=== PATIENT | male | born 1945 | race African-American/Black ===

== ENCOUNTER 2025-02-10 13:38 | Emergency (ER) | payer MEDICARE, OTHER ==
[~2025-02-10] VITALS: Ht 167.6 cm; Wt 72.6 kg
--- NOTE | 2025-02-10 13:45 | ERN ---
ED Note History of Present Illness Stated Complaint: URINARY RETENTION Chief Complaint: Urinary Retention Time Seen by MD: 13:40 Dictation: PATIENT IS A 79-YEAR-OLD MALE COMING IN WITH A SONS FROM THE LOCAL [place] [facility]. HE IS COMPLAINING OF URINARY RETENTION ONSET HAS BEEN INTERMITTENTLY FOR THE LAST COUPLE OF DAYS. HE HAD A BLADDER SCAN PERFORMED AT THE [facility], HAD 694 CC RETAINED URINE WAS SENT TO THE EMERGENCY ROOM FOR A SHAW CATHETER INSERTION. PATIENT STATES HE HAS A HISTORY OF PROSTATE ENLARGEMENT AND HAVE HAD LEFT TESTICULAR CANCER WITH REMOVAL IN [place] WHERE HE LIVES. CHILLS NO FLANK PAIN. NO NAUSEA PATIENT NOTED TO BE DISTENDED 3-4 FINGERBREADTHS ABOVE SYMPHYSIS PUBIS IN TRIAGE Allergies: Coded Allergies: alendronate sodium (Unverified Allergy, Unknown, NAUSEA/VOMITING, 02/10/25) meloxicam (Unverified Allergy, Unknown, RASH, 02/10/25) pineapple (Unverified Allergy, Unknown, 02/10/25) Past Medical History RN Note Reviewed/Agreed w/PFSH: Yes Review of System Dictation CONSTITUTIONAL: NEGATIVE EXCEPT FOR HPI HEAD/FACE: NEGATIVE EXCEPT FOR HPI EENT: NEGATIVE EXCEPT FOR HPI RESPIRATORY: NEGATIVE EXCEPT FOR HPI GASTROINTESTINAL/ABDOMINAL: NEGATIVE EXCEPT FOR HPI GENITOURINARY: NEGATIVE EXCEPT FOR HPI URINARY RETENTION MUSCULOSKELETAL: NEGATIVE EXCEPT FOR HPI INTEGUMENTARY: NEGATIVE EXCEPT FOR HPI NEUROLOGICAL/PSYCH: NEGATIVE EXCEPT FOR HPI HEMATOLOGIC/LYMPHATIC: NEGATIVE EXCEPT FOR HPI ALL SYSTEMS NEGATIVE, EXCEPT NOTED ABOVE. 13 POINT REVIEW OF SYSTEMS ASSESSED AND ALL NEGATIVE EXCEPT FOR ABOVE. Initial Vital Sign VS Vital Signs Date Time Temp Pulse Resp B/P (MAP) Pulse Ox O2 Delivery O2 Flow Rate FiO2 02/10/25 13:41 98.1 62 20 115/74 20 Room Air 0 Physical Exam Dictation VITAL SIGNS REVIEWED GENERAL APPEARANCE: ALERT, ORIENTED X 3, MODERATE ACUTE DISTRESS, WELL DEVELOPED, NOURISHED. HEAD AND FACE: NON-TRAUMATIC. EYES: PERRL, PINK CONJUNCTIVAS, EYELID NO TRAUMA, ANTERIOR CHAMBER WITH ARCUS SENILIS. EARS: PINNAS INTACT AND NO SIGNS OF TRAUMA OR ERYTHEMA EAR CANALS CLEAR AND NO DISCHARGE TM NO ERYTHEMA NOSE: NO DISCHARGE, NO BLEEDING. OROPHARYNX: MOUTH NORMAL, TONGUE PINK, PHARYNX CLEAR,NO ERYTHEMA, TONSILS NO EXUDATES, NO ABSCESSES NOTED, MUCOUS MEMBRANE MOIST NECK: SUPPLE, NON-TENDER, NO THYROMEGALY, NO MASSES, NO JVD, NO BRUITS BREAST:DEFERRED CHEST:NO TENDERNESS, NO CREPITUS, NO PARADOXICAL MOVEMENT, NO RETRACTIONS LUNGS:CLEAR, WELL-VENTILATED, SYMMETRIC, NO RALES, NO WHEEZING, NO RHONCHI, NO STRIDOR, GOOD BREATH SOUNDS BILATERALLY HEART: REGULAR RATE, REGULAR RHYTHM, NO MURMUR, NO GALLOPS VASCULAR: NO PERIPHERAL EDEMA, ABDOMEN: SOFT, POSITIVE BOWEL SOUNDS, NONDISTENDED, NO GUARDING, NONTENDER, NO REBOUND, NO MASSES NO HEPATOMEGALY, NO SPLENOMEGALY, NO PAUL'S SIGN, NO HERNIAS. RECTAL: DEFERRED GENITAL: PATIENT DISTENDED 3-4 FINGERBREADTHS ABOVE SYMPHYSIS PUBIS. NEUROLOGICAL: NORMAL SPEECH, MOTOR FUNCTION INTACT, SENSORY FUNCTION INTACT MUSCULOSKELETAL: NECK NONTENDER, FULL RANGE OF MOTION, BACK NONTENDER, FULL RANGE OF MOTION, EXTREMITIES: NONTENDER, FULL RANGE OF MOTION SKIN: COLOR PINK, DRY, NO TURGOR, NO RASH, NO LACERATIONS, NO ABRASIONS, NO C ONTUSIONS. LYMPHATIC: DEFERRED Results (Laboratory/Radiology) Laboratory/Radiology Laboratory Tests Test 02/10/25 15:50 Urine Color LIGHT-YELLOW (YELLOW) Urine Appearance CLEAR (CLEAR) Urine pH 6.5 (5.0-8.0) Urine Specific [place] 1.009 (1.001-1.031) Urine Protein NEGATIVE mg/dL (NEGATIVE) Urine Glucose (UA) NEGATIVE mg/dL (NEGATIVE) Urine Ketones NEGATIVE mg/dL (NEGATIVE) Urine Occult Blood NEGATIVE (NEGATIVE) Urine Nitrate NEGATIVE (NEGATIVE) Urine Bilirubin NEGATIVE mg/dL (NEGATIVE) Urine Urobilinogen 0.2 mg/dL (0.2-1.0) Urine Leukocyte Esterase NEGATIVE Brian/uL Labs Reviewed?: Yes ED Course ED Course Orders Procedure Category Date Status Time Nurse Driven Celia MILES 02/10/25 In Process Removal Pro 13:42 Urinalysis Profile LAB 02/10/25 Complete 13:42 Levofloxacin 500mg PHA 02/10/25 Verified Tab (Levaquin 500mg T 16:06 Tamsulosin Hcl PHA 02/10/25 Verified (Flomax) 16:30 Vital Signs Date Time Temp Pulse Resp B/P (MAP) Pulse Ox O2 Delivery O2 Flow Rate FiO2 02/10/25 13:41 98.1 62 20 115/74 20 Room Air 0 107/PATIENT DRAINING QUANTITY SUFFICIENT AMOUNT OF CLEAR JOVON URINE. URINALYSIS NEGATIVE PATIENT WILL BE LOADED WITH LEVAQUIN AND FLOMAX SENT HOME WITH A LEG BAG AND SHAW CATHETER AND TOLD TO SEE HIS DOCTOR IN [place] AND WHEN HE GETS BACK HOME IN THE NEXT FEW DAYS. Medical Decision Making MDM MEDICAL DECISION-MAKING BASED ON HPI AND PHYSICAL EXAM. PATIENT WAS MARKEDLY DISTENDED AND SHAW CATHETER WAS PLACED PATIENT NOW DECOMPRESSED AND BLADDER NO LONGER PALPABLE DISCHARGED HOME WITH LEVAQUIN AND FLOMAX PATIENT HAS SHAW CATHETER AND LEG BAG IN PLACE [facility] AND PATIENT TOLD TO FOLLOW UP WITH HIS UROLOGIST IN [place] WHEN HE GETS HOME Procedure Procedure Dictation: 1530/EXPLAINED TO PATIENT HE AGREED TO PROCEED SIXTEEN SAMI SHAW CATHETER PLACED BY HOUSE BUILDER ASEPTIC TECHNIQUE WAS USED. PATIENT TOLERATED WELL APPROXIMATE 800 CC CLEAR JOVON URINE RETURNED. BLADDER NO LONGER PALPABLE DX & DISP Disposition: Discharge Departure Impression: Primary Impression: Benign prostatic hyperplasia with urinary retention Condition: Stable Scripts Levofloxacin (Levofloxacin) 500 Mg Tablet 1 TAB PO DAILY for 10 Days, #10 TAB 0 Refills Prov: SEBASTIAN ENRIQUEZ 02/10/25 Tamsulosin HCl (Flomax) 0.4 Mg Cap.er.24h 1 CAP PO DAILY for 30 Days, #30 CAP 0 Refills Prov: SEBASTIAN ENRIQUEZ 02/10/25 Additional Instructions: FOLLOW-UP WITH PRIMARY CARE PROVIDER IN 1 TO 2 DAYS. TAKE MEDICATIONS DIRECTED HERE IN THE EMERGENCY ROOM. OKAY TO CONTINUE HOME MEDICATIONS UNLESS OTHERWISE DISCUSSED DURING YOUR VISIT IN THE EMERGENCY ROOM TODAY. RETURN TO YOUR NEAREST EMERGENCY ROOM IF SYMPTOMS WORSEN OR IF THERE IS NO IMPROVEMENT. CALL 911 IF YOU NEED IMMEDIATE ASSISTANCE. TAKE TYLENOL OR MOTRIN [id number] NEEDED AND IF NO CONTRAINDICATIONS ARE PRESENT. INCREASE ORAL HYDRATION. A WOUND CULTURE OR URINE CULTURE WAS ORDERED HERE IN THE EMERGENCY ROOM DEPARTMENT PLEASE FOLLOW-UP WITH PRIMARY CARE PROVIDER AND ADVISE THEM TO GET REPEAT PORTS FROM OUR FACILITY. IF YOU HAD ANY EB WRAP/SPLINTS THAT WERE APPLIED HERE, PLEASE DO NOT REMOVE THEM UNTIL YOU SEE YOUR PRIMARY CARE OR SPECIALTY. TAKE FLOMAX AND LEVAQUIN DIRECTED. INCREASE YOUR WATER INTAKE. FOLLOW UP WITH THE UROLOGIST IN [place] WHEN YOU RETURN HOME. Referrals: NONE (PCP) I have reviewed the case, and I agree with, Diagnosis and Plan SEBASTIAN ENRIQUEZ Feb 10, 2025 13:45
[2025-02-10 15:50] VITALS: BP 149/94; PULSE 75; RESP 18; TEMP 97.8; O2SAT 93
--- NOTE | 2025-02-10 15:50 | NUR ---
ASSUMED CARE OF THIS PATIENT AT THIS TIME. Addendum: 02/10/25 at 1816 by [email or web address] Angella IBANEZ, PROVIDER HAD INSERTED SHAW CATHETER TO PATIENT AND COLLECTED URINE. SENT TO LAB.
[2025-02-10 16:03] LABS: ADD UA MICROSCOPIC NO; APPEARANCE,URINE CLEAR (CLEAR); GLUCOSE, URINE (UA) NEGATIVE (NEGATIVE); LEUKOCYTE ESTERASE ,URINE NEGATIVE Leu/uL (NEGATIVE); NITRATE,URINE NEGATIVE (NEGATIVE); OCCULT BLOOD,URINE NEGATIVE (NEGATIVE)
[2025-02-10] MEDS ORDERED: TAMS-55 PO (16:09)
[2025-02-10] MEDS ORDERED: LEVO-70 PO (16:09)
--- NOTE | 2025-02-10 17:00 | NUR ---
INSTRUCTED & DEMONSTRATED TO PATIENT AND HIS SON AT BEDSIDE ON HOW TO EMPTY URINE FROM SHAW CATHETER BAG PROPERLY. SECURED SHAW CATHETER TO HIS RIGHT INNER THIGH AREA. ASSISTED IN DRESSING PATIENT AND INSTRUCTED ON HOW TO DRESS WITH CARE OF SHAW CATHETER. PATIENT AND SON BOTH VERBALIZED UNDERSTANDING AND RETURNED DEMONSTRATION CORRECTLY.
--- NOTE | 2025-02-10 17:18 | NUR ---
ASSISTED PATIENT OUT TO PRIVATE VEHICLE VIA WHEELCHAIR.
== END 2025-02-10 17:18 | disposition home or self-care (01) ==
LOC: EDH 13:38
DX: N40.1 Benign prostatic hyperplasia with lower urinary tract symptoms (principal); R33.8 Other retention of urine; Z88.8 Allergy status to other drugs, medicaments and biological substances; Z91.018 Allergy to other foods
CPT/HCPCS: 51702; 81003; 99284; 99285